=== PATIENT | male | born 1990 | race Two or more races ===

== ENCOUNTER 2019-06-03 16:55 | Emergency (ER) | payer OTHER ==
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
[2019-06-03] MEDS ORDERED: Ketorolac 60 MG/2 ML SDV IM ONE (17:38)
[2019-06-03] MEDS ORDERED: Diphtheria,Pertussis(Acell),Tetanus Vaccine 0.5 ML SDV IM ONE (17:50)
--- NOTE | 2019-06-03 18:01 | CR ---
[id number] RAD/RAD Nasal Bones Exam: RAD Nasal Bones Indication:NOSE PAIN. Comparison: No prior imaging for comparison. Discussion: Acute depressed fracture of the nasal bone at its tip. Depressed fragment measures 7 mm in length and is displaced inferior and posterior approximately 2-3 mm. Impression: Acute displaced fracture of the nasal bone tip. Alonso Croft MD 06/03/19 2215 Thank you for allowing us to participate in the care of your patient.
== END 2019-06-03 18:15 | disposition home or self-care (01) ==
LOC: KA.ED 16:55
DX: S02.2XXA Fracture of nasal bones, initial encounter for closed fracture (principal); I10 Essential (primary) hypertension; Z23 Encounter for immunization; Z91.048 Other nonmedicinal substance allergy status; Y04.0XXA Assault by unarmed brawl or fight, initial encounter
CPT/HCPCS: 70160; 90471; 90715; 96372; 99283; J1885

== ENCOUNTER 2019-09-22 23:11 | Emergency (ER) | payer SELFPAY ==
[2019-09-22] MEDS ORDERED: Acetaminophen/oxyCODONE 325-5 MG Tab PO ONE (23:31)
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
[2019-09-22] MEDS ORDERED: Bacitracin/Neomycin/Polymyxin B Oint 28.4 GM Tube TOP ONE (23:40)
--- NOTE | 2019-09-23 08:33 | CR ---
[id number] RAD/RAD Lumbar Spine 2-3V Exam: RAD Lumbar Spine 2-3V Indication:FALL Comparison: No prior imaging for comparison. Discussion: Vertebral bodies are in normal alignment. No acute fracture or compression deformity. Intervertebral disc heights are well-preserved. Bone mineralization is normal. Impression: Normal examination. Alonso Croft MD 09/23/19 0832 Thank you for allowing us to participate in the care of your patient.
== END 2019-09-23 00:05 | disposition home or self-care (01) ==
LOC: KA.ED 23:11
DX: S30.810A Abrasion of lower back and pelvis, initial encounter (principal); I10 Essential (primary) hypertension; W10.9XXA Fall (on) (from) unspecified stairs and steps, initial encounter; Z91.09 Other allergy status, other than to drugs and biological substances
CPT/HCPCS: 72100; 99284; A9270; 99283

== ENCOUNTER 2021-03-12 11:08 | Emergency (ER) | payer SELFPAY ==
[2021-03-12] MEDS ORDERED: Sodium Chloride 0.9% 1,000 ML IV ONE ×2 (11:41→12:56)
[2021-03-12] MEDS ORDERED: Ondansetron 4 MG/2 ML SDV IVPUSH ONE (11:42)
[2021-03-12] MEDS ORDERED: Pantoprazole 40 MG in Sodium Chloride 0.9% 100 ML IV ONE (11:53)
[2021-03-12] MEDS ORDERED: LORazepam 2 MG/ML SDV IVPUSH ONE (12:05)
[2021-03-12 12:07] LABS: CHLORIDE,CL 94 mmol/L (98-107); SODIUM,NA 135 mmol/L (136-145)
[2021-03-12] MEDS ORDERED: Pantoprazole 40 MG Vial IVPUSH ONE (12:11)
[2021-03-12] MEDS ORDERED: Iopamidol 755 Mg/ML 75 ML Bottle IVPUSH ONE (12:35)
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
[2021-03-12] MEDS ORDERED: Sodium Chloride 0.9% 50 ML IV SCH (12:45)
--- NOTE | 2021-03-12 13:25 | CT ---
[id number] CT/CT Chest W IV; CT/CT Abdomen Pelvis W IV EXAM: CHEST CT WITH CONTRAST INDICATION: VOMITING BLOOD, DARK, ETOH DEPENDENT COMPARISON: None. DISCUSSION: The lungs are clear. No pleural or pericardial effusion. Normal heart size. No thoracic adenopathy. The liver is mildly enlarged and demonstrates moderate to severe steatosis. Possible early collateral vessels in the upper abdomen. The pancreas, gallbladder, spleen, adrenal glands, kidneys, small bowel, and appendix are normal in appearance. No adenopathy, free air free fluid. The osseous structures are unremarkable. Mild wall thickening in the distal sigmoid and rectal wall suggestive of mild proctocolitis. The proximal colon is normal in appearance. IMPRESSION: 1. The liver is mildly enlarged and demonstrates moderate to severe steatosis. Scattered varices are suggested in the upper abdomen. 2. Mild proctocolitis involving the rectum and distal most sigmoid colon. Micah Doyle MD 03/12/21 [id number] Thank you for allowing us to participate in the care of your patient.
[2021-03-12 13:28] LABS: BARBITURATE SCREEN,URINE NEGATIVE (NEGATIVE); BENZODIAZEPINES SCREEN,URINE NEGATIVE (NEGATIVE); TCA SCREEN,URINE NEGATIVE (NEGATIVE); THC SCREEN,URINE 50 NG/ML NEGATIVE (NEGATIVE)
== END 2021-03-12 15:40 ==
LOC: KA.ED 11:08
DX: K92.0 Hematemesis (principal); R79.89 Other specified abnormal findings of blood chemistry; I10 Essential (primary) hypertension; F10.180 Alcohol abuse with alcohol-induced anxiety disorder; K02.9 Dental caries, unspecified; Y90.2 Blood alcohol level of 40-59 mg/100 ml; Z91.048 Other nonmedicinal substance allergy status
CPT/HCPCS: 36415; 71260; 74177; 80053; 80305-QW; 80307; 81001; 82150; 83690; 85025; 96374; 96375; 99284; 99285-25; C9113; J2060; J2405; J7030; Q9967